=== PATIENT | male | born 1960 | race Hispanic/Latino ===

== ENCOUNTER → 2018-05-26 | Outpatient (CLI) | payer OTHER | LOC: RAD 14:12 | PROVIDERS: ATTEND Family Medicine | DX: M79.604 Pain in right leg (principal) | CPT/HCPCS: 93971 ==

== ENCOUNTER → 2021-12-18 | Outpatient (CLI) | payer BC ==
[~2021-12-18] MED LIST: IOPAMIDOL 370 MG/ML 200 ML INFUS..BTL INJ ONE; SODIUM CHLORIDE 0.9% 50ML 50 ML ONE
[2021-12-18 09:49] LABS: CREATININE, SERUM 0.81 mg/dL (0.72-1.25)
== END ==
LOC: NM 07:59
PROVIDERS: ATTEND Internal Medicine Hepatology
DX: C22.0 Liver cell carcinoma (principal); R93.2 Abnormal findings on diagnostic imaging of liver and biliary tract; Z11.59 Encounter for screening for other viral diseases
CPT/HCPCS: 36415; 71260; 78306; 82565; 84520; A9503; Q9967

== ENCOUNTER → 2022-03-14 | Outpatient (CLI) | payer BC ==
[~2022-03-14] MED LIST changes: +GADOBENATE DIMEGLUMINE 1 ML IV ONE; -IOPAMIDOL 370 MG/ML 200 ML INFUS..BTL INJ ONE; -SODIUM CHLORIDE 0.9% 50ML 50 ML ONE
[2022-03-14 08:26] LABS: CREATININE, SERUM 0.84 mg/dL (0.72-1.25)
== END ==
LOC: MRI 07:17
PROVIDERS: ATTEND Internal Medicine Hematology & Oncology
DX: C22.0 Liver cell carcinoma (principal)
CPT/HCPCS: 36415; 74183; 82565; 84520; A9577